=== PATIENT | female | born 1995 | race Two or more races ===

== ENCOUNTER → 2021-11-07 | Outpatient (CLI) | payer BC, OTHER | LOC: EDBD 11:00 → M LABSMTC 11:06 | PROVIDERS: ATTEND Internal Medicine Gastroenterology | DX: Z11.52 Encounter for screening for COVID-19 (principal); Z20.828 Contact with and (suspected) exposure to other viral communicable diseases ==

== ENCOUNTER 2023-06-19 17:45 | Emergency (ER) | payer BC, OTHER ==
[~2023-06-19] VITALS: Ht 167.6 cm; Wt 80.9 kg
[2023-06-19 20:30] LABS: BASO % 0.5 % (0.0-1.0); EOS # 0.1 10^3/uL (0.0-0.5); EOS % 0.6 % (0.0-3.0); HEMATOCRIT 38.9 % (36.0-47.0); HEMOGLOBIN 13.3 g/dl (12.0-15.5); LYMPH # 1.9 10^3/uL (1.5-5.0); LYMPH % 22.2 % (24.0-44.0); MEAN CORPUSCULAR HEMOGLOBIN 29.8 pg (27.0-33.0); MEAN CORPUSCULAR HGB CONC 34.2 g/dl (32.0-36.5); MONO # 0.4 10^3/uL (0.0-0.8); NEUTROPHILS # 6.1 10^3/uL (1.5-8.5); NEUTROPHILS % 71.5 % (36.0-66.0); PLATELET COUNT, AUTOMATED 300 10^3/uL (150-450); RED BLOOD COUNT 4.47 10^6/uL (4.00-5.40); WHITE BLOOD COUNT 8.5 10^3/uL (4.0-10.0)
[2023-06-19 20:35] LABS: ERYTHROCYTE SEDIMENTATION RATE 9 mm/hr (0-20)
[2023-06-19 21:10] LABS: LIPASE 44 U/L (12-53)
[2023-06-19 21:11] LABS: C REACTIVE PROTEIN QUANTITATIV < 0.40 MG/DL (<1.0); HCG, SERUM QUALITATIVE NEGATIVE (NEGATIVE)
[2023-06-19 21:12] LABS: ALBUMIN 4.5 G/DL (3.2-5.2); ALKALINE PHOSPHATASE 62 U/L (46-116); ALT/SGPT 15 U/L (7.0-40); AST/SGOT 12 U/L (<34); BILIRUBIN,DIRECT 0.2 MG/DL (<0.4); BILIRUBIN,TOTAL 0.4 MG/DL (0.3-1.2); BLOOD UREA NITROGEN 11 MG/DL (9-23); CALCIUM LEVEL 9.3 MG/DL (8.5-10.1); CARBON DIOXIDE LEVEL 26 MMOL/L (20-31); CHLORIDE LEVEL 106 MMOL/L (98-107); CREATININE FOR GFR 0.63 MG/DL (0.55-1.30); GLOMERULAR FILTRATION RATE > 60.0 (>60); GLUCOSE, FASTING 87 MG/DL (60-100); SODIUM LEVEL 138 MMOL/L (136-145)
[2023-06-20] MEDS: ONDANSETRON 4MG 2ML VIAL IV ONE (01:16)
[2023-06-20] MEDS: NS 1,000 ML IV ONE (01:17)
[2023-06-20] MEDS ORDERED: ISOVUE-370 76% 100ML VIAL As Ordered ONE (01:46)
[2023-06-20] MEDS ORDERED: ONDA4TAB6 PO (03:43)
[2023-06-20 03:45] VITALS: BP 128/71; TEMP 98.2; O2SAT 98
== END 2023-06-20 04:10 | disposition home or self-care (01) ==
LOC: M ED 17:45
DX: R11.10 Vomiting, unspecified (principal); F10.10 Alcohol abuse, uncomplicated; Z88.6 Allergy status to analgesic agent; Z79.83 Long term (current) use of bisphosphonates
CPT/HCPCS: 74177; 80048; 80076; 81001; 83690; 84703; 85025; 85652; 86140; 87486; 87581; 87633; 87798; 96361; 96374; 99284; J2405; Q9967

== ENCOUNTER → 2023-07-27 | Outpatient (CLI) | payer OTHER, BC ==
[~2023-07-27] MED LIST: ONDA4TAB6 PO
[2023-07-27 12:24] LABS: BASO % 0.5 % (0.0-1.0); EOS % 0.5 % (0.0-3.0); HEMATOCRIT 38.3 % (36.0-47.0); LYMPH # 1.2 10^3/uL (1.5-5.0); LYMPH % 21.3 % (24.0-44.0); MEAN CORPUSCULAR HEMOGLOBIN 29.1 pg (27.0-33.0); MEAN CORPUSCULAR HGB CONC 33.9 g/dl (32.0-36.5); MEAN CORPUSCULAR VOLUME 85.9 fl (80.0-96.0); MONO # 0.3 10^3/uL (0.0-0.8); MONO % 5.3 % (2.0-8.0); NEUTROPHILS # 4.2 10^3/uL (1.5-8.5); NEUTROPHILS % 72.2 % (36.0-66.0); PLATELET COUNT, AUTOMATED 279 10^3/uL (150-450); RED BLOOD COUNT 4.46 10^6/uL (4.00-5.40); WHITE BLOOD COUNT 5.8 10^3/uL (4.0-10.0)
[2023-07-27 12:33] LABS: ERYTHROCYTE SEDIMENTATION RATE 8 mm/hr (0-20)
[2023-07-27 12:45] LABS: CPK CREATINE PHOSPHOKINASE 84 U/L (34-145)
[2023-07-27 12:46] LABS: ALBUMIN 4.4 G/DL (3.2-5.2); ALKALINE PHOSPHATASE 72 U/L (46-116); ALT/SGPT 14 U/L (7.0-40); AST/SGOT 12 U/L (<34); BILIRUBIN,TOTAL 0.6 MG/DL (0.3-1.2); BLOOD UREA NITROGEN 13 MG/DL (9-23); CALCIUM LEVEL 9.8 MG/DL (8.5-10.1); CARBON DIOXIDE LEVEL 27 MMOL/L (20-31); CHLORIDE LEVEL 105 MMOL/L (98-107); CREATININE FOR GFR 0.75 MG/DL (0.55-1.30); GLOMERULAR FILTRATION RATE > 60.0 (>60); GLUCOSE, FASTING 92 MG/DL (60-100); POTASSIUM SERUM 4.1 MMOL/L (3.5-5.1); RHEUMATOID FACTOR QUANT < 3.5 IU/ML (<14); SODIUM LEVEL 140 MMOL/L (136-145)
[2023-07-27 12:47] LABS: THYROXINE (T4) 11.5 UG/DL (4.5-10.9)
[2023-07-27 12:48] LABS: THYROID STIMULATING HORMONE 1.548 uIU/ML (0.55-4.78)
[2023-07-27 12:49] LABS: FOLATE 23.7 NG/ML (>5.4); VITAMIN B12 LEVEL 473 PG/ML (211-911)
[2023-07-27 12:50] LABS: FREE THYROXINE INDEX 4.2 % (1.3-4.8); T UPTAKE 36.2 % (22.5-37.0)
== END ==
LOC: M PLALAB 10:35
PROVIDERS: ATTEND Psychiatry & Neurology Neurology
DX: Z11.9 Encounter for screening for infectious and parasitic diseases, unspecified (principal); D51.9 Vitamin B12 deficiency anemia, unspecified; M62.81 Muscle weakness (generalized); E07.9 Disorder of thyroid, unspecified